=== PATIENT | female | born 1975 | race Caucasian/White ===

== ENCOUNTER 2018-08-01 09:05 | Outpatient (CLI) | payer BC | END 2018-08-01 09:06 | disposition home or self-care (01) | LOC: BICMAMMO 09:05 | PROVIDERS: ATTEND Obstetrics & Gynecology | DX: Z12.31 Encounter for screening mammogram for malignant neoplasm of breast (principal); Z80.3 Family history of malignant neoplasm of breast | CPT/HCPCS: 77063; 77067 ==

== ENCOUNTER 2019-08-21 10:23 | Outpatient (CLI) | payer BC ==
--- NOTE | 2019-08-21 11:36 | MMO ---
Bilateral MAMMO Bilat Diag [facility]. CLINICAL HISTORY: Patient is 43 years old and is seen for diagnostic exam and palpable abnormality in the left breast. The patient has no family history of breast cancer. The patient has no personal history of cancer. The patient has a history of bilateral Implants at age 35 - benign. VIEWS: The views performed were: bilateral craniocaudal; bilateral craniocaudal with tomosynthesis; bilateral mediolateral oblique; bilateral mediolateral oblique with tomosynthesis; bilateral mediolateral; bilateral mediolateral with tomosynthesis; and bilateral Implant displaced with tomosynthesis. FILMS COMPARED: The present examination has been compared to prior imaging studies performed at [facility] on 03/20/2016, 05/25/2017, 08/01/2018 and 08/21/2019. This study has been interpreted with the assistance of computer-aided detection. MAMMOGRAM FINDINGS: The breasts are heterogeneously dense, which could obscure a lesion on mammography. Bilateral implants are stable. Ultrasound of the palpable finding was normal. There are no suspicious masses, suspicious calcifications, or new areas of architectural distortion. IMPRESSION: THERE IS NO MAMMOGRAPHIC EVIDENCE OF MALIGNANCY. A ROUTINE FOLLOW-UP MAMMOGRAM IN 1 YEAR IS RECOMMENDED. THE RESULTS OF THIS EXAM WERE SENT TO THE PATIENT. ACR BI-RADS Category 2 - Benign finding MAMMOGRAPHY NOTE: 1. A negative mammogram report should not delay a biopsy if a dominant of clinically suspicious mass is present. 2. Approximately 10% to 15% of breast cancers are not detected by mammography. 3. Adenosis and dense breasts may obscure an underlying neoplasm. Reported by: TAO LAWSON MD Electonically Signed: [id number]
--- NOTE | 2019-08-21 13:06 | ULT ---
LEFT BREAST ULTRASOUND; HISTORY: A 43-year-old female with a palpable abnormality at the 7 o'clock position of the left breast. CORRELATION: Mammogram from the same date. FINDINGS: Sonographic evaluation in the region of palpable concern, at the 7 o'clock position of the left breas t, demonstrates no abnormality. IMPRESSION: BI-RADS category 2 - benign findings. Return to annual mammographic screening. POS: OFF
== END 2019-08-21 10:24 | disposition home or self-care (01) ==
LOC: BICMAMMO 10:23
PROVIDERS: ATTEND Obstetrics & Gynecology
DX: N63.20 Unspecified lump in the left breast, unspecified quadrant (principal); Z98.82 Breast implant status
CPT/HCPCS: 77066; G0279

== ENCOUNTER 2020-09-09 09:19 | Outpatient (CLI) | payer BC ==
--- NOTE | 2020-09-09 10:42 | CT ---
CT ABDOMEN WITH IV CONTRAST: Oral contrast was also administered. INDICATION: Upper abdominal pain. COMPARISON: Correlation is made to CT abdomen from 2013 and MRI abdomen from 07/28/2013. Multiple hepatic jaquan iomas were noted on that study with a large hemangioma in the inferior right lobe. FINDINGS: Lung bases clear. Review of the liver again shows a large mass lesion in the inferior right lobe with peripheral nodula r enhancement consistent with hemangioma, stable from prior exam. There is a second lesion in the mi d right lobe and a third in the left lobe which appear stable from the prior study. Spleen and pancreas unremarkable. Stomach and duodenum unremarkable. Adrenal glands appear normal. Kidneys unremarkable. Tiny low-density foci in the renal cortex on the left are subcentimeter, proba alber representing tiny cortical cysts. No hydronephrosis. The gallbladder is contracted and appears unremarkable by CT. Gallstones may not be apparent on CT. Visualized bowel loops unremarkable. Aorta normal caliber. No adenopathy. Osseous structures unrem arkable. IMPRESSION: 1. Hepatic hemangiomas are again seen and appear stable. 2. No acute process identified. POS: AGW
[2020-09-09] MEDS ORDERED: Iopamidol-370 76% 500 ML 1 ML ONE (12:18)
== END 2020-09-09 09:20 | disposition home or self-care (01) ==
LOC: BICCT 09:19
PROVIDERS: ATTEND Internal Medicine
DX: R10.12 Left upper quadrant pain (principal); D18.03 Hemangioma of intra-abdominal structures
CPT/HCPCS: 74160; Q9967